=== PATIENT | female | born 1960 | race Caucasian/White ===

== ENCOUNTER 2019-12-21 10:34 | Emergency (ER) | payer SELFPAY ==
[2019-12-21 11:29] LABS: #Basophils 0.1 thou/uL (0.0-0.2); #Eosinphils 0.2 thou/uL (0.0-0.7); #Lymphocytes 1.4 thou/uL (1.20-3.40); #Monocytes 0.5 thou/uL (0.11-0.59); %Basophils 1.1 % (0.0-1.0); %Eosinophils 2.3 % (0.0-10.0); %Lymphocytes 16.8 % (21.0-51.0); %Monocytes 6.4 % (0.0-10.0); %Neutrophils 73.4 % (42.0-75.0); Hemoglobin 14.1 g/dL (12.0-16.0); Mean Corpuscular HGB CONC 31.3 g/dL (32.0-36.0); Mean Platelet Volume 7.5 fL (7.4-10.4); Platelet Count 281 thou/uL (130-400); RBC Distribution Width 11.1 % (11.5-14.5); Red Blood Cell (RBC) Count 4.56 mill/uL (4.20-5.40); White Blood Cell (WBC) Count 8.2 thou/uL (4.8-10.8)
--- NOTE | 2019-12-21 11:38 | RAD ---
Exam: Chest one view HISTORY:Chest pain. Comparison: 06/07/2014 FINDINGS: Cardiac silhouette: Normal Aorta: Unremarkable Pulmonary vessels: Normal Costophrenic angles: Clear LUNGS: No masses or consolidation. Pneumothorax: None Osseous abnormalities: None IMPRESSION: No acute cardiopulmonary process.
[2019-12-21 12:06] LABS: ALT (SGPT) 24 U/L (8-55); Albumin 4.8 g/dL (3.5-5.0); Alkaline Phosphatase 76 U/L (40-110); Anion Gap 17 mmol/L (10-20); BUN (Urea Nitrogen) 11 mg/dL (9.8-20.1); Bilirubin, Total 0.3 mg/dL (0.2-1.2); Calc. Creatinine Clearance 0 mL/min (70-130); Calcium 10.5 mg/dL (7.8-10.44); Carbon Dioxide 22 mmol/L (22-29); Chloride 104 mmol/L (98-107); Estimated GFR-MDRD 76; Globulin 3.7 g/dL (2.4-3.5); Glucose 90 mg/dL (70-105); Sodium 138 mmol/L (136-145)
[2019-12-21 12:20] LABS: AST (SGOT) 22 U/L (5-34); Potassium 3.8 mmol/L (3.5-5.1); Protein, Total 7.6 g/dL (6.0-8.3)
== END 2019-12-21 12:18 | disposition home or self-care (01) ==
LOC: NAV ERS 10:34
DX: R42 Dizziness and giddiness (principal); F32.9 Major depressive disorder, single episode, unspecified; F41.9 Anxiety disorder, unspecified; Z86.73 Personal history of transient ischemic attack (TIA), and cerebral infarction without residual deficits; Z79.899 Other long term (current) drug therapy
CPT/HCPCS: 71045; 80053; 84484; 85025; 93005

== ENCOUNTER 2020-06-03 08:11 | Emergency (ER) | payer SELFPAY ==
[2020-06-03] MEDS ORDERED: Ibuprofen 200 MG TAB ONE ×2 (08:39)
--- NOTE | 2020-06-03 08:48 | RAD ---
EXAM: 3 views of the right foot HISTORY: Foot pain after trauma COMPARISON: None FINDINGS: 3 views of the right foot shows fractures of the third through fifth metatarsals. These fra ctures are extra-articular. No dislocation is seen. Mild soft tissue swelling is seen. No degenerative changes are present. IMPRESSION: Third through fifth metatarsal fractures
== END 2020-06-03 09:20 | disposition home or self-care (01) ==
LOC: NAV ERS 08:11
DX: S92.341A Displaced fracture of fourth metatarsal bone, right foot, initial encounter for closed fracture (principal); S92.331A Displaced fracture of third metatarsal bone, right foot, initial encounter for closed fracture; S92.351A Displaced fracture of fifth metatarsal bone, right foot, initial encounter for closed fracture; F41.9 Anxiety disorder, unspecified; F32.9 Major depressive disorder, single episode, unspecified; F17.210 Nicotine dependence, cigarettes, uncomplicated; Z79.899 Other long term (current) drug therapy; X58.XXXA Exposure to other specified factors, initial encounter
CPT/HCPCS: 99406

== ENCOUNTER 2020-12-22 11:38 | Emergency (ER) | payer SELFPAY ==
[2020-12-23 20:17] LABS: SARS-CoV-2 PCR by NAA DETECTED (NotDetected)
== END 2020-12-22 12:11 | disposition home or self-care (01) ==
LOC: NAV ERS 11:38
DX: U07.1 COVID-19 (principal); J06.9 Acute upper respiratory infection, unspecified; Z86.73 Personal history of transient ischemic attack (TIA), and cerebral infarction without residual deficits
CPT/HCPCS: 99283; U0003; U0005

== ENCOUNTER 2021-11-15 11:16 | Emergency (ER) | payer OTHER, SELFPAY ==
[2021-11-15] MEDS ORDERED: Ketorolac Tromethamine 30 MG/ML VIAL ONE (12:21)
== END 2021-11-15 12:54 | disposition home or self-care (01) ==
LOC: NAV ERS 11:16
DX: M54.42 Lumbago with sciatica, left side (principal); F17.210 Nicotine dependence, cigarettes, uncomplicated; Z86.73 Personal history of transient ischemic attack (TIA), and cerebral infarction without residual deficits
CPT/HCPCS: 96372; 99283; J1885

== ENCOUNTER 2022-10-04 13:50 | Outpatient (CLI) | payer OTHER | END 2022-10-04 13:51 | disposition home or self-care (01) | LOC: NAV RAD 13:50 | PROVIDERS: ATTEND Nurse Practitioner Family | DX: M54.32 Sciatica, left side (principal); M47.816 Spondylosis without myelopathy or radiculopathy, lumbar region | CPT/HCPCS: 72100 ==